=== PATIENT | male | born 1970 | race Caucasian/White ===

== ENCOUNTER 2018-06-22 13:30 | Emergency (ER) | payer MEDICAID ==
[2018-06-22] MEDS ORDERED: NS 1,000 ML IV ONE ×2 (14:14→16:59)
[2018-06-22] MEDS ORDERED: METOPROLOL TARTRATE 5 MG/5 ML INJ IVP ONE ×2 (14:17→15:23)
[2018-06-22 14:25] LABS: PLATELET COUNT 264 10^3/uL (150-400)
--- NOTE | 2018-06-22 14:36 | EDPHY ---
H & P Smoking Status: Never smoked Time Seen by Provider: 06/22/18 13:44 HPI/ROS: HPI Irregular heart beat. Lightheadedness. 47-year-old male by private vehicle with his brother and family. This patient reports that since or Thursday of last week he has had intermittent episodes of an irregular heartbeat which she describes as fast with associated lightheadedness. He does not have any prior history of arrhythmia or coronary artery disease. No history of thyroid disorder. He drinks a cup of coffee in the morning. Otherwise he denies significant caffeine use during the day or energy drinks. No associated chest pain or shortness of breath. His brother has a history of atrial fibrillation. He is concerned he may have atrial fibrillation also. He does take Adderall. And has been doing so for over a year. ROS: Constitutional: No fever, no chills. As above. Eyes: No discharge. No changes in vision. ENT: No sore throat. No nasal congestion or rhinorrhea. Respiratory: No cough. No shortness of breath. Cardiac: No chest pain, as above. Gastrointestinal: No abdominal pain, no vomiting, no diarrhea. Genitourinary: No hematuria. No dysuria or increased frequency with urination. Musculoskeletal: No back pain. No neck pain. No myalgias or arthralgias. Skin: No rashes. Neurological: No headache. No focal weakness or altered sensation. Past medical history: Attention deficit hyperactivity disorder. Social history: Nonsmoker. Denies IV drugs or street drugs. No alcohol. Here with brother and family. Physical Exam: General Appearance: Alert, mildly anxious but not in distress. This patient is responding to questions appropriately and in full sentences. This patient appears well-hydrated and well-nourished. Eyes: Pupils equal and round no pallor or injection. No lid edema, erythema or injection. Respiratory: There are no retractions, lungs are clear to auscultation with good air movement bilaterally. Cardiovascular: Regular rate and rhythm. No murmur. Gastrointestinal: Abdomen is soft and nontender, no masses, bowel sounds normal. No focal tenderness at McBurney's point. No Hector sign. Neurological: Motor sensory function is grossly intact. Cranial nerves are normal. Gait is normal. Skin: Warm and dry, no rashes. Musculoskeletal: Neck is supple and nontender. Extremities are symmetrical. All joints range without pain or impingement. Psychiatric: No agitation. No depression. Database: EKG: EKG time is 1:44 p.m.; EKG shows a narrow complex normal sinus rhythm with a ventricular rate of 82. The DC, QRS, QT intervals are within normal limits. There are no ST-T wave changes indicative of ischemic or injury pattern. No evidence of right heart strain. No evidence of WPW, Brugada syndrome, hypertrophic cardiomyopathy. Possible left atrial enlargement. Left anterior fascicular block noted. Interpreted by me. EKG time is 2:48 p.m.; EKG shows a narrow complex normal sinus rhythm with a ventricular rate of 62. Probable early repolarization pattern pattern, there is also a possible accelerated junctional rhythm at the end of the rhythm strip. The DC, QRS, QT intervals are within normal limits. There are no ST-T wave changes indicative of ischemic or injury pattern. No evidence of right heart strain. Interpreted by me. Imaging: Procedures: Emergency department course: Triage vital signs reviewed and are unremarkable. He is mildly hypertensive. IV was placed. He was placed on a forepart reducer. EKG obtained and reviewed by myself. It was noted during my evaluation that he was going in and out of SVT, narrow complex on his monitor. This was not captured on our initial EKG. He will be given 500 cc to 1 L of IV normal saline over the next 1-2 hours. He will be given 5 mg of IV metoprolol. 2:35 p.m., patient re-evaluated, resting comfortably at this time. He has had 5 mg of metoprolol IV. Chest pressure is currently 127/81. rubber compounder formulator shows a narrow complex sinus rhythm with ventricular rate of 64. There are some intermittent phases of bradycardia into the upper 50s. Spoke to nurse practitioner Ramsey with [facility]. Dr. John Yadav and Dr. Donohue were sitting beside him. Case discussed with Ramsey in detail. They recommend we give the patient 25 mg of oral metoprolol and obtain an echocardiogram. Once the echocardiogram is complete, they will come down to the emergency department to consult on the patient and discuss disposition. 3:00 p.m., the patient was re-evaluated, resting comfortably at this time. Plan of management was discussed with him and his brother. Blood pressure currently 131/81. rubber compounder formulator shows a narrow complex regular sinus rhythm with ventricular rate of 70. Care will be turned over to Dr. Cristin Parada at this time. 3:25 p.m., spoke with Dr. Ash Yadav of the cardiology service. He is reviewed the patient's echocardiogram. It is unremarkable. He requested we give the patient another 5 mg of IV metoprolol and 25 mg of oral metoprolol in the emergency department now. He then recommends a period of observation for an hour and then re-evaluation. He feels that if his SVT has resolved completely he can likely go home and follow up with electrophysiology in their office. This plan was discussed with Dr. Cristin Parada. Differential Diagnosis: The differential diagnosis on this patient includes but is not limited to SVT. Thyroid dysfunction, atrial fibrillation pulmonary embolism, acute coronary syndrome unlikely. This represents a partial list of diagnoses considered. These considerations are based on history, physical exam, past history, reassessment and diagnostic testing. (Hamlet Corbett) Constitutional: Initial Vital Signs Temperature (C) 36.6 C 06/22/18 13:32 Heart Rate 93 06/22/18 13:32 Respiratory Rate 16 06/22/18 13:32 Blood Pressure 142/81 H 06/22/18 13:32 O2 Sat (%) 96 06/22/18 13:32 O2 Delivery Mode Room Air Allergies/Adverse Reactions: No Known Allergies Allergy (Verified 06/22/18 13:32) Home Medications: Medication Instructions Recorded ADDERALL 15 MG TABLET 06/30/16 Ambien 10 mg 06/30/16 Fish Oil 06/30/16 Flonase Nasal [place] 06/30/16 Glucosamine 06/30/16 Multivitamin 06/30/16 Probiotic 06/30/16 Metoprolol Tartrate 25 mg PO BID #30 tablet 06/22/18 Medical Decision Making - Diagnostics EKG Interpretation: EKG interpreted by me reveals sinus rhythm, rate 62, episode of SVT. Interpretation: Abnormal EKG (Cristin Parada) ED Course/Re-evaluation: -I assumed care of this patient at shift change. He presented with episodic SVT. He has received metoprolol 5 mg IV x2 and metoprolol 50 mg orally. Echocardiogram was reportedly unremarkable and cardiology has evaluated this patient. The plan is to discharge the patient home if the episodes of SVT resolved. On my evaluation, the patient continues to have episodes of SVT at 1600. He is clearly symptomatic and becomes dizzy during these episodes. Admission discussed with the patient and he currently refuses admission. He clearly understands the risks and benefits of this decision and is a competent decision maker. 1645: pt continues to have episodes of symptomatic SVT. BP 90/50. IV NS 1 liter given. Pt refuses admission. Dr. Yadav consulted and saw the pt in the ED. 1730: BP 109/77, HR 62. [facility] called; pt has appt with Dr. Costa tomorrow at 11am. (Cristin Parada) Differential Diagnosis: includes though is not limited to atrial fibrillation, ventricular dysrhythmia, persistent hypotension, ACS, hyperthyroidism (Cristin Parada) - Data Points Laboratory Results: Laboratory Results 06/22/18 14:07 06/22/18 14:07 06/22/18 06/22/18 06/22/18 14:11 14:07 14:07 WBC 7.02 10^3/uL 10^3/uL (3.80-9.50) RBC 4.91 10^6/uL 10^6/uL (4.40-6.38) Hgb 15.8 g/dL g/dL (13.7-17.5) Hct 44.4 % % (40.0-51.0) MCV 90.4 fL fL (81.5-99.8) MCH 32.2 pg pg (27.9-34.1) MCHC 35.6 g/dL g/dL (32.4-36.7) RDW 12.3 % % (11.5-15.2) Plt Count 264 10^3/uL 10^3/uL (150-400) MPV 9.1 fL fL (8.7-11.7) Neut % (Auto) 65.8 % % (39.3-74.2) Lymph % (Auto) 24.2 % % (15.0-45.0) Patrick % (Auto) 4.6 % % (4.5-13.0) Eos % (Auto) 4.1 % % (0.6-7.6) Baso % (Auto) 1.0 % % (0.3-1.7) Nucleat RBC Rel Count 0.0 % % (0.0-0.2) Absolute Neuts (auto) 4.62 10^3/uL 10^3/uL (1.70-6.50) Absolute Lymphs (auto) 1.70 10^3/uL 10^3/uL (1.00-3.00) Absolute Monos (auto) 0.32 10^3/uL 10^3/uL (0.30-0.80) Absolute Eos (auto) 0.29 10^3/uL 10^3/uL (0.03-0.40) Absolute Basos (auto) 0.07 10^3/uL 10^3/uL (0.02-0.10) Absolute Nucleated RBC 0.00 10^3/uL 10^3/uL (0-0.01) Immature Gran % 0.3 % % (0.0-1.1) Immature Gran # 0.02 10^3/uL 10^3/uL (0.00-0.10) Sodium 140 mEq/L mEq/L (135-145) Potassium 4.1 mEq/L mEq/L (3.5-5.2) Chloride 109 mEq/L mEq/L (97-110) Carbon Dioxide 23 mEq/l mEq/l (22-31) Anion Gap 8 mEq/L mEq/L (6-14) BUN 19 mg/dL mg/dL (7-23) Creatinine 0.9 mg/dL mg/dL (0.7-1.3) Estimated GFR > 60 Glucose 117 mg/dL H mg/dL (70-100) Calcium 9.4 mg/dL mg/dL (8.5-10.4) POC Troponin I 0.00 ng/mL ng/mL (0.00-0.08) TSH 1.610 uIU/mL uIU/mL (0.465-4.680) Medications Given: Discontinued Medications Sodium Chloride (Ns) 1,000 mls @ 0 mls/hr IV EDNOW ONE; Wide Open PRN Reason: Protocol Stop: 06/22/18 14:15 Last Admin: 06/22/18 14:18 Dose: 1,000 mls Sodium Chloride (Ns) 1,000 mls @ 0 mls/hr IV EDNOW ONE; Wide Open PRN Reason: Protocol Stop: 06/22/18 17:00 Last Admin: 06/22/18 17:00 Dose: 1,000 mls Metoprolol Tartrate (Lopressor Injection) 5 mg IVP EDNOW ONE Stop: 06/22/18 14:18 Last Admin: 06/22/18 14:21 Dose: 5 mg Metoprolol Tartrate (Lopressor) 25 mg PO EDNOW ONE Stop: 06/22/18 14:49 Last Admin: 06/22/18 14:53 Dose: 25 mg Metoprolol Tartrate (Lopressor Injection) 5 mg IVP EDNOW ONE Stop: 06/22/18 15:24 Last Admin: 06/22/18 15:44 Dose: 5 mg Metoprolol Tartrate (Lopressor) 25 mg PO EDNOW ONE Stop: 06/22/18 15:24 Last Admin: 06/22/18 15:44 Dose: 25 mg Point of Care Test Results: Chemistry 06/22/18 14:11 POC Troponin I 0.00 ng/mL ng/mL (0.00-0.08) Departure - Departure Disposition: Home, Routine, Self-Care Clinical Impression: Supraventricular tachycardia Instructions: Supraventricular Tachycardia (ED) Additional Instructions: I have advised you to be admitted. I am concerned that you may faint and hurt yourself. Read and follow provided instructions. Do not drive. Have someone stay with you. Follow-up with [facility] or re-evaluation. Take medication as prescribed. Return to the emergency department for worsening symptoms or other serious concerns. Referrals: [facility] [Provider Group] - As per Instructions (You have an appointment with Dr. Costa tomorrow at 11am.) Prescriptions: Metoprolol Tartrate 25 mg PO BID #30 tablet
[2018-06-22] MEDS ORDERED: METOPROLOL TARTRATE 25 MG TAB PO ONE ×2 (14:48→15:23)
[2018-06-22] MEDS ORDERED: PERFLUTREN LIPID MICROSPHERES 1.1 MG/ML VIAL IV ONE (15:17)
--- NOTE | 2018-06-22 15:21 | CPEKG ---
Test Reason : OPEN Blood Pressure : / mmHG Vent. Rate : 062 BPM Atrial Rate : 063 BPM P-R Int : 143 ms QRS Dur : 094 ms QT Int : 392 ms P-R-T Axes : 053 -55 005 degrees QTc Int : 398 ms Sinus rhythm Paired ventricular premature complexes Left anterior fascicular block ST elev, probable normal early repol pattern Confirmed by Hamlet Corbett ([id number]) on 06/22/2018 3:20:42 PM Referred By: Hamlet Corbett Confirmed By:Hamlet Corbett
--- NOTE | 2018-06-22 15:21 | CPEKG ---
Test Reason : OPEN Blood Pressure : / mmHG Vent. Rate : 082 BPM Atrial Rate : 082 BPM P-R Int : 142 ms QRS Dur : 092 ms QT Int : 369 ms P-R-T Axes : 042 -70 037 degrees QTc Int : 431 ms Sinus rhythm Probable left atrial enlargement Left anterior fascicular block Confirmed by Hamlet Corbett ([id number]) on 06/22/2018 3:20:42 PM Referred By: Hamlet Corbett Confirmed By:Hamlet Corbett
--- NOTE | 2018-06-22 15:47 | PDCONSULT ---
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 He is generally very healthy individual. His major comorbidity includes attention deficit hyperactivity disorder for which he takes Adderall. He has had no recent medication changes nor has he had adjustment of his drug dosages. Generally feels well. For about the last week he has been experiencing symptoms of palpitations. These are described as brief episodes generally lasting between 3 and 7 sec of symptoms of palpitations associated with transient dizziness. He has never lost consciousness however on 1 occasion "he had to take a knee." These are not associated with symptoms of chest discomfort, chest pain, chest heaviness or dyspnea. He denies has a history of fever, chills and sweats. Because of these symptoms he came to the emergency department here. He was hemodynamically stable. On telemetry he had multiple episodes of nonsustained SVT and appeared to be triggered by a premature atrial contraction. These generally lasted for last than 10 sec in duration. Prior to my arrival he had received 25 mg of oral metoprolol and 5 mg of IV metoprolol. Reviewing his laboratory tests his TSH and electrolytes are normal. A bedside echocardiogram was unremarkable. Review of systems: A full 10 point review of systems was performed and is otherwise negative. Past medical history: He is generally healthy with the exception of attention deficit hyperactivity disorder. He has no history cardiac vascular, structural or arrhythmic heart disease. Family history: He has an identical twin brother who is with him today. His twin brother has a history of paroxysmal atrial fibrillation with a single event. There is also gout. Surgical history: He has had previous fractures without pertinent surgical history. Medications: These are detailed in the chart and not repeated here. Social history: He is and accompanied by his . They have no children. He is also here with his identical twin brother. He works doing small remodel projects. He uses alcohol sparingly. There is no history of tobacco or drug use. Likes to exercise vigorously and regularly. Physical exam: Vital signs are as noted above. In general he is a healthy white male no acute distress. HEENT is unremarkable. Respiratory clear lung randle bilaterally to auscultation and percussion. He speaks in full sentences using no accessory muscle. Cardiovascular exam is normal with a regular rate and rhythm and no murmurs gallops or rubs. His abdomen is soft and nontender with no masses or hepatosplenomegaly. Abdominal aorta is nonpalpable. Extremities are warm and well perfused. He has 2+ radial dorsal pedal and posterior tibial pulses. Neurologically he is intact with a pleasant mood and affect he is alert and oriented. Database: He is ECG demonstrates normal sinus rhythm at baseline. On telemetry and on a 12 lead ECG there are salvos of nonsustained SVT initiated by a PAC likely representing either atrial tachycardia or atypical AV node reentrant tachycardia. CBC and complete metabolic profile are normal. His TSH is unremarkable. He had a bedside echocardiogram that was essentially unremarkable. Impression: This is a 47-year-old male seen in the emergency department with a history of palpitations associated with transient dizziness and lightheadedness. He has documented evidence of an SVT triggered by a PAC. He has been given 25 mg of metoprolol p. O. And 5 mg IV with an improvement in his overall arrhythmia burden and symptoms. By review of systems and in reviewing his labs he does not appear to have any lifestyle issues that are triggering his recent development of SVT additionally, he has no indications of significant electrolyte abnormalities or hyperthyroidism. Recommendations: 1. I have asked that he be given an additional 5 mg of IV metoprolol and 25 additional mg of p.o. Metoprolol. 2. I would like to observe him for little bit longer in the emergency department. If we see that his arrhythmias begin to subside and his symptoms improved and I think he can be discharged with close follow-up in the electrophysiology Clinic. 3. This was discussed with Dr. Hamlet Corbett who is in agreement. 4. Available by phone should he have any difficulties during the remainder of his emergency department stay.
--- NOTE | 2018-06-22 16:46 | ECHO ---
[email or web address] [address] [address] Main: [phone] Fax: Transthoracic Echocardiogram Name: DIOGO HERNADEZ MR#: [id number] Study Date: 06/22/2018 Study Time: 03:00 PM Date of : 1970 Age: 47 year(s) Height: 180.3 cm (71 in.) Weight: 81.65 kg (180 lb.) BSA: 2.02 m2 Gender: Male Examination: Echo with Definity Indication: chest pain Image Quality: Adequate Contrast: 0.165 mg I.V. dose of Definity was administered to improve endocardial border definition. Requested by: Hamlet Fall BP: 131 mmHg/81 mmHg Heart Rate: Rhythm: Indication: chest pain Procedure Staff Associate Professor Of English: Leslie Leslie RDCS Reading Physician: John Yadav MD Requesting Provider: Conclusions: Normal size left ventricle. Normal global systolic LV function. EF is 60 %. No regional wall motion abnormality. Normal diastolic LV function. Mild mitral valve regurgitation is present. Pulmonary artery pressure is not obtained due to inadequate TR jet. There are no significant valvular abnormalities. Definity contrast was used to opacify the left ventricular apex. There was normal wall motion and no evidence of thrombus. Measurements: Chambers Valvular Assessment AV/MV Valvular Assessment TV/PV Normal Normal Normal Name Value Range Name Value Range Name Value Range Ao Sultana (MM): 3.2 cm (2.2 cm-3.7 AV Vmax: 0.96 m/s (1 m/s-1.7 cm) m/s) IVSd (2D): 1.5 cm (0.6 cm-1.1 AV maxP mmHg ( - ) cm) LVOT Vmax: 0.78 m/s (0.7 m/s-1.1 LVDd (2D): 4.0 cm (4.2 cm-5.9 m/s) cm) MV E Vmax: 0.61 m/s ( - ) LVDs (2D): 2.8 cm (2.1 cm-4 MV A Vmax: 0.58 m/s ( - ) cm) MV E/A: 1.05 ( - ) LVPWd (2D): 1.4 cm (0.6 cm-1 cm) LVEF (BP): 60 % (>=55 %) RVDd(2D): 4.3 cm (1.9 cm-3.8 cmmm) Patient: DIOGO HERNADEZ Study Date: 06/22/2018 Page 1 of 2 03:00 PM Continued Measurements: Chambers Valvular Assessment AV/MV Valvular Assessment TV/PV Name Value Name Value Name Value LADs: 3.8 cm MV DecTime: 197 m/s CVP (est.): 5 mmHg LADs Lon.6 cm MV E/E' Septal: 9.60 LA Area: 21.5 cm2 MV E/E' Lateral: 5.40 LA Volume: 71 ml LA Volume Index: 35.1 ml/m2 RA Area: 19.7 cm2 Additional Vessels Name Value Ao Ascendin.3 cm Findings: Left Ventricle: Normal size left ventricle. No LV hypertrophy. Normal global systolic LV function. EF is 60 %. No regional wall motion abnormality. Normal diastolic LV function. No LV apical thrombus. Right Ventricle: Normal size right ventricle. Normal RV function. Left Atrium: The left atrium is mildly dilated. Right Atrium: The right atrium is mildly dilated. Mitral Valve: The mitral valve is normal in appearance and function. Mild mitral valve regurgitation is present. No mitral stenosis is present. Aortic Valve: The aortic valve is tri-leaflet and functions normally. There is no aortic valve regurgitation. No aortic valve stenosis is present. Tricuspid Valve: The tricuspid valve appears normal. Trivial tricuspid valve regurgitation. Pulmonary artery pressure is not obtained due to inadequate TR jet. Pulmonic Valve: Pulmonary valve not well visualized. Trivial pulmonic valve regurgitation. Aorta: Normal size aortic root measuring 3.2 cm. Normal size ascending aorta measuring 3.3 cm. IVC: Normal size and course of the IVC. Pericardium: No pericardial effusion. (No Signature Object) Patient: DIOGO HERNADEZ Study Date: 06/22/2018 Page 2 of 2 03:00 PM [id number]
[2018-06-22 18:09] VITALS: BP 136/89
== END 2018-06-22 18:23 | disposition home or self-care (01) ==
DX: I47.1 Supraventricular tachycardia (principal); F90.9 Attention-deficit hyperactivity disorder, unspecified type; Z79.899 Other long term (current) drug therapy; E86.9 Volume depletion, unspecified
CPT/HCPCS: 93005; 96361; 96374; 96376; 99285; C8929; 84484-ER; Q9957